=== PATIENT | female | born 1960 | race Caucasian/White ===

== ENCOUNTER 2023-10-07 10:33 | Emergency (ER) | payer OTHER ==
[2023-10-07] MEDS: Lidocaine 1% 5 ML VIAL INJECT ONE (11:07)
[2023-10-07] MEDS: Diphtheria,Pertussis(Acell),Tetanus Vaccine 0.5 ML Syringe IM ONE (11:07)
[2023-10-07] MEDS ORDERED: Bacitracin Oint 1 GM U/D Packet ONE (11:18)
== END 2023-10-07 11:34 ==
LOC: DL.ED 10:33
DX: S60.452A Superficial foreign body of right middle finger, initial encounter (principal); I10 Essential (primary) hypertension; Z23 Encounter for immunization; W45.8XXA Other foreign body or object entering through skin, initial encounter
CPT/HCPCS: 90471; 90715; 99282; 99283-25; J3490